=== PATIENT | female | born 2000 | race Caucasian/White ===

== ENCOUNTER 2024-05-16 09:55 | Outpatient (AMB) | payer OTHER, SELFPAY ==
--- NOTE | 2024-05-16 09:57 | A.OFFPC_ITS ---
Vital Signs 05/16/24 10:00 Height 5 ft 6 in Weight 120 lb BMI 19.4 BP 104/70 Blood Pressure Location Rt brachial Position Sitting Pulse 75 Pulse Source Pulse Oximeter Pulse Oximetry (%) 100 Oxygen Delivery Method Room Air Intake Visit Reasons: New Patient/Requesting physical Intake Note: Pt is here today as a New Patient to est care/PE Allergies No Known Allergies Allergy (Verified 05/16/24 10:09) Medication List - Last Reconciled 05/16/24 by Savannah Rogers MD No Known Home Meds Tobacco use date assessed: 05/16/24 Dental Screening Dental Screen Date: 05/16/24 Did you have a dental visit in the last 12 months?: Yes Did you have a dental problem in the last 6 months where you did not have access to dental care?: No Was dental information given to patient?: Patient has dentist HPI New Patient/Requesting physical HPI Details 23-year-old lady new to practice, here t o establish care with a new PCP and for physical exam. She is up-to-date with her cervical cancer screening, last done at [facility] 12/07/2019 with normal findings. She is now currently being seen by Dr. Shania mcfarlane at [facility] and pelvic exam. She is currently feeling well, with no complaints at present time. [facility] Medical History (Updated 05/16/24 @ 10:28 by Savannah Rogers MD) Family history of early CAD No pertinent past medical history Surgical History (Updated 05/16/24 @ 10:17 by Savannah Rogers MD) Hx of wisdom tooth extraction Hx of LASIK Family History (Updated 05/16/24 @ 10:20 by Savannah Rogers MD) Maternal Grandmother Lung cancer Mother Essential hypertension Father Hx of myocardial infarction Maternal Grandfather Alzheimer's dementia, Onset Age: 60 Social History (Updated 05/16/24 @ 10:34 by Savannah Rogers MD) Housing: House Patient Tobacco Use Status: Never used Tobacco e-Cigarette/Vaping Use: Never Used Substance Use Type: Marijuana Advance Directives Date on File: 05/16/24 service: No Current occupational status: employed 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 1. Little interest or pleasure in doing things: not at all 2. Feeling down, depressed, or hopeless: not at all 3. Trouble falling or staying asleep, or sleeping too much: not at all 4. Feeling tired or having little energy: not at all 5. Poor appetite or overeating: not at all 6. Feeling bad about yourself - or that you are a failure or have let yourself or your family down: not at all 7. Trouble concentrating on things, such as reading the newspaper or watching television: not at all 8. Moving or speaking so slowly that other people could have noticed. Or the opposite - being so fidgety or restless that you have been moving around a lot more than usual: not at all 9. Thoughts that you would be better off or of hurting yourself in some way: not at all Total score: 0 Depression Screening Interpretation: Negative Depression Screening Done: Yes 44505 - PHQ-9 Billing: Yes Source: Developed by Drs. Wes Soares, Catherine Pearl, Fernando Stiles and colleagues, with an educational richard from [employer]. Thrive Questionnaire Date Thrive assessed: 05/16/24 I am a: Patient What is your living situation today?: I have a steady place to live Within the past 12 months, did the food you bought not last and you didn't have the money to get more?: Never true Within the past 12 months, did you worry whether your food would run out before you got money to buy more?: Never true Do you have trouble paying for medicines?: No Do you have trouble getting transportation to medical appointments?: No Do you have trouble paying your heating and electricity bill?: No Do you have trouble taking care of your child, family member or friend?: No Do you have trouble with day-to-day activities such as bathing, preparing meals, shopping, managing finances, etc.?: No Are you currently unemployed and looking for a job?: No Are you interested in more education?: No Please select the resources that you would like help with: Housing/Senior Care Currently or been in a relationship where the following occur: No concerns reported THRIVE Score: 0 AUDIT C Alcohol Use Questionnaire (AUDIT-C) 1. How often do you have a drink containing alcohol?: Monthly or less 2. How many drinks containing alcohol do you have on a typical day when you are drinking?: 1 or 2 3. How often do you have six or more drinks on one occasion?: Less than monthly Total Score: 2 OTILIA-7 AMB Questionnaire OTILIA-7 Date OTILIA - 7 assessed: 05/16/24 Feeling nervous, anxious, or on edge: 0 = Not at all Not being able to stop or control worryin = Not at all Worrying too much about different things: 0 = Not at all Being so restless that it is hard to sit still: 0 = Not at all Becoming easily annoyed or irritable: 0 = Not at all Feeling afraid as if something awful might happen: 0 = Not at all Source: Developed by Drs. Wes Soares, Catherine Pearl, Fernando Stiles and colleagues, with an educational richard from [email or web address]. OTILIA-7 Assessment Billing OTILIA-7 Assessment Tool: OTILIA-7 Assessment 24812 Review of Systems Const Denies body aches, Reports difficulty sleeping (Occasional, takes THC gummies), Denies fatigue, Denies fever(s), Denies headache(s) and Denies weakness Eyes Denies change in vision ENT Denies dizziness, Denies headache(s), Denies nasal congestion and Denies nasal discharge Card Denies chest pain, Denies lightheadedness, Denies palpitations and Denies dyspnea Resp Denies chest congestion, Denies cough, Denies dyspnea and Denies wheezing GI Denies abdominal pain, Denies change in bowel habits and Denies heartburn Denies hematuria, Denies urinary frequency, Denies dysuria and Denies urinary urgency Musc Reports no additional complaints Skin/Breast Denies breast pain, Denies breast mass, Denies lesions and Denies rash Neuro Denies dizziness, Denies headache(s) and Denies weakness Psych Reports no additional complaints Endo Denies fatigue, Denies polydipsia, Denies polyuria and Denies palpitations Adan/Lymph Denies easy bruising Aller/Immun Denies seasonal rhinorrhea and Denies wheezing Physical exam (Primary Care) Vital Signs: Last Vital Signs Pulse 75 05/16/24 10:00 BP 104/70 05/16/24 10:00 Pulse Ox 100 05/16/24 10:00 Oxygen Delivery Method Room Air 05/16/24 10:00 BMI result Body Mass Index 19.4 Tobacco/Smoking Status: Tobacco use Status Tobacco use date assessed 05/16/24 05/16/24 10:06 Patient Tobacco Use Status Never used Tobacco 05/16/24 10:06 e-Cigarette/Vaping Use Never Used 05/16/24 10:06 PHQ-9: PHQ-9 Score PHQ-9: Total score 0 05/16/24 10:06 Depression Screening Interpretation: Negative Thrive Assessment: Date of Thrive Assessment Date Thrive assessed 05/16/24 05/16/24 10:06 Currently or been in a relationship where the following occur: No concerns reported Advance Care Planning discussion: Completed/Scanned Date of discussion: 05/16/24 Who was present: Patient Forms completed: Health Care Proxy Time spent: 16-45 minutes Actual minutes spent: 16 Const General: no acute distress and alert Nutritional Appearance: average body habitus Orientation/consciousness: patient oriented x3 HENMT Head: Yes normocephalic and Yes atraumatic Ears: external ears normal, TM's normal bilaterally and EAC's normal General nose exam: Normal external nose present and No nasal discharge present Face and sinus: Yes face symmetric Mouth: Normal oral and palatal mucosa present, lip normal, tongue normal, oropharynx normal and moist mucous membranes Eyes General: appearance normal, both eyes and all related structures Eyelids: Yes eyelids normal Conjunctivae: conjunctivae normal Sclerae: sclerae normal Pupils: Equal, round and reactive pupils present EOM: EOMs intact bilaterally Neck Neck: Yes full ROM, Yes no lymphadenopathy and Yes supple Thyroid: Thyroid normal (Nonpalpable) Chest Chest palpation & inspection: normal inspection of the chest Breast/axilla inspection: normal inspection of the breasts Breast/axilla palpation: normal palpation of the breasts Resp Effort & Inspection: normal respiratory effort and able to speak in complete sentences Auscultation: clear to auscultation bilaterally Cardio Rate: regular rate Rhythm: regular rhythm Heart sounds: S1 normal heart sound present and S2 normal heart sound present GI Palpation (GI): Soft to palpation, nontender, no guarding and no masses Auscultation: normal bowel sounds Other: Deferred, currently sees [facility] Sm[facility] General: Yes no CVA tenderness Back/Spine/Pelvis Back: no CVA tenderness and No back tenderness Skin General skin exam: no rashes or lesions noted Neuro General: patient oriented x3, gait normal, moves all extremities, Normal light touch and pain sensation, no focal motor deficits and CN's II-XI intact bilat erally Cranial nerves: Yes Equal, round and reactive pupils present Cognition (Neuro): normal cognition Gait exam (Neuro): Normal gait present Motor exam (neuro): 5/5 motor strength present throughout Extrem General: Yes normal to inspection, Yes full ROM, Yes no joint enlargement, Yes no pedal edema and Yes normal gait Psych Appearance: grossly normal and well kempt Mental Status: mental status grossly normal Speech and movement: Normal speech and movement present Affect: normal affect Attitude: cooperative Thought process: Normal thought process present Thought content: Normal thought content present Insight: Good insight present (Psych) Judgement: Good judgement present (Psych) Assessment and Plan Assessment & Plan (1) Annual visit for general adult medical examination with abnormal findings: Code(s): Z00.01 - Encounter for general adult medical examination with abnormal findings Plan: Will check appropriate labs. Continue dental visit every 6 months and regular eye exams, currently up-to-date. Recommended to take vitamin-D 3 at least 2000 units daily, and get regular exercise. Instructed to do self-breast exam, and recommended to get yearly mammogram, starting at age 40. Advised to get yearly flu shots, up-to-date with her Tdap. She is currently seeing Dr. Shania mcfarlane at [facility] for her routine Pap and pelvic exam (2) Encounter for screening for diabetes mellitus: Code(s): Z13.1 - Encounter for screening for diabetes mellitus Plan: Fasting blood sugar ordered (3) Encounter for screening for lipid disorder: Code(s): Z13.220 - Encounter for screening for lipoid disorders Plan: Fasting lipid panel ordered (4) Family history of early CAD: Code(s): Z82.49 - Family history of ischemic heart disease and other diseases of the circulatory system Plan: Will check fasting lipids, fasting glucose, reinforced importance of following a healthy diet and getting regular exercise. (5) Encounter for counseling regarding advance directives: Code(s): Z71.89 - Other specified counseling Plan: Initiated the conversation about Advanced Directives. Advanced Directives help patients prepare for current and future decisions about their medical treatment and place of care. Discussed with patient that it is a process where a patients current condition and prognosis are reviewed, their wishes for information regarding their illness are elicited, and likely medical dilemmas are presented and options discussed. Healthcare proxy form completed today, scanned into chart The form can be amended as needed, reviewed yearly and make changes as needed Orders: Orders Hemoglobin and Hematocrit Today Z00.01 - Encounter for general adult medical examination with abnormal findings, Z13.1 - Encounter for screening for diabetes mellitus, Z13.220 - Encounter for screening for lipoid disorders, Z82.49 - Family history of ischemic heart disease and other diseases of the circulatory system Vitamin D 25-OH Total Today Z00.01 - Encounter for general adult medical examination with abnormal findings, Z13.1 - Encounter for screening for diabetes mellitus, Z13.220 - Encounter for screening for lipoid disorders, Z82.49 - Family history of ischemic heart disease and other diseases of the circulatory system Lipid Panel Today Z00.01 - Encounter for general adult medical examination with abnormal findings, Z13.1 - Encounter for screening for diabetes mellitus, Z13.220 - Encounter for screening for lipoid disorders, Z82.49 - Family history of ischemic heart disease and other diseases of the circulatory system Basic Metabolic Panel Fasting Today Z00.01 - Encounter for general adult medical examination with abnormal findings, Z13.1 - Encounter for screening for diabetes mellitus, Z13.220 - Encounter for screening for lipoid disorders, Z82.49 - Family history of ischemic heart disease and other diseases of the circulatory system Coding Level of Care Code New Pt Prev Care 18-39yr([id number] Diagnoses Annual visit for general adult medical examination with abnormal findings Z00.01 Encounter for screening for diabetes mellitus Z13.1 Encounter for screening for lipid disorder Z13.220 Family history of early CAD Z82.49 Encounter for counseling regarding advance directives Z71.89 Additional Codes OTILIA-7 Assessment Billing - OTILIA-7 Assessment Tool: OTILIA-7 Assessment 29413 ([id number]) Vital Signs *Quality* - Advance Care Planning discussion: Completed/Scanned ([id number]) Vital Signs *Quality* - Time spent: 16-45 minutes ([id number])
[2024-05-16 10:00] VITALS: BP 104/70; PULSE 75; O2SAT 100; BMI 19.4
== END 2024-05-16 10:37 | disposition home or self-care (01) ==
PROVIDERS: PCP Internal Medicine; Visit Provider Internal Medicine
DX: Z00.00 Encounter for general adult medical examination without abnormal findings (principal); Z13.1 Encounter for screening for diabetes mellitus; Z13.220 Encounter for screening for lipoid disorders; Z82.49 Family history of ischemic heart disease and other diseases of the circulatory system; Z71.89 Other specified counseling
CPT/HCPCS: 1123F; 99385; 99497

== ENCOUNTER 2025-07-03 10:57 | Outpatient (AMB) | payer OTHER, SELFPAY ==
--- OUTSIDE RECORDS SUMMARY | 2016-05-06 10:15 | XMS_ITS | Continuity of Care Document ---
Author Organization [facility] Address [address] [place] [address] [place] [address] Phone Care Team Providers Care Manager Pulmonary Name Role Phone Melissa Oreilly MD Unavailable Unavailable Allergies, Adverse Reactions, Alerts Substance Reaction Status Criticality No Known Allergies Active No Inform ation Procedures Procedure Date Contact Lens Exam - Spherical Contact - EST Wearer Determination of refractive st 16 Contact Lens Exam - Spherical Contact - EST Wearer Wellness Established Patient Determination of refractive st 13 No Charge/Recheck No Charge/Recheck Wellness Established Patient Advance Directives Directive Yes / No Effective Date File Name No Information Encounters Encounter Description Practice Location Reason(s) For Visit Diagnoses Date Provider Providers Copied on Encounter [facility] [address], [address], [place] tel:[phone] [place] contact lens exam (chief complaint) Myopia, bilateral Denilson Torres. [address] [place] [address], [id number] , [place]. tel:[phone] Referring Provider: Shree Quevedo, [address] [place] [address], [id number] . tel:[phone] [facility] [address], [address], [place] tel:[phone] [place] wellness exam (chief complaint) Myopia Elisa Swann. [address] [place] [address], [id number] , [place]. tel:[phone] Referring Provider: Shree Quevedo, [address] [place] [address], [id number] . tel:[phone] [facility] [address], [address], [place] tel:[phone] [place] Myopia Elisa Swann. [address] [place] [address], [id number] , [place]. tel:[phone] Referring Provider: Shree Quevedo, [address] [place] [address], [id number] . tel:[phone] [facility] [address], [address], [place] tel:[phone] [place] Myopia Elisa Swann. [address] [place] [address], [id number] , [place]. tel:[phone] Referring Provider: Shree Quevedo, [address] [place] [address], [id number] . tel:[phone] [facility] [address], [address], [place] tel:[phone] [place] Myopia Denilson Torres. [address] [place] [address], [id number] , [place]. tel:[phone] Referring Provider: Melissa Oreilly, [address] [place] [address], [id number] . tel:[phone] [facility] [address], [address], [place] tel:[phone] [place] Myopia Elisa Swann. [address] [place] [address], [id number] , [place]. tel:[phone] Referring Provider: Shree Quevedo, [address] [facility], [place], [address] . tel:[phone] Family History Family Member Type Diagnosis Age At Onset No Information Payers Payer name Insurance type Covered democrat ID Authoriza tion(s) No Information Social History Type Description Quantity Date Captured Comments Alcohol Use Details No Caffeine Use Details Unknown Tobacco Use Status No Information Smoking Status Never smoker Sex Female Chief Complaint And Reason For Visit From encounter dated '05/06/2016 14:15'. contact lens exam (chief complaint). Description: The 15 years 9 months old female presents for contact lens exam in the right eye and left eye. Patient says that her vision is doing well. Replaces her contacts every 3 weeks or so. She says that she sometimes wears her glasses too. She sleeps in her contacts occasionally. Reason For Referral Reason For Referral No Information History Of Present Illness Encounter Date Complaint History Of Prese nt Illness contact lens exam The 15 years 9 months old female presents for contact lens exam in the right eye and left eye. Patient says that her vision is doing well. Replaces her contacts every 3 weeks or so. She says that she sometimes wears her glasses too. She sleeps in her contacts occasionally. wellness exam The 14 years 6 m onths old female presents for wellness exam. Denies any vision changes.Wearing Av Oasys 8.8 -4.25/-4.25Replace-2 weeks.Apoorva-equate. Functional Status Date Functional Assessmen t No Information Instructions Date Instruction Additional Infor lata - Contacts, establis hed: The patient should continue contact lens wear. We recommend removing lenses daily for the health of the eyes. We also recommend a pair of glasses as backup. Educational materials provided:CONTACT LENS AVAILABLE FOR ONLINE ORDERING WITH FREE SHIPPING. VISIT OUR WEBSITE AT [email or web address] Related to Myopia, bilateral - Return in 1 year w brandon Oreilly for Comprehensive Visit , Contact Lens Exam Related to Myopia, bilateral - Birdie estabzoltan hed: The patient should continue contact lens wear. We recommend removing lenses daily for the health of the eyes. We also recommend a pair of glasses as backup. Educational materials provided:CONTACT LENS AVAILABLE FOR ONLINE ORDERING WITH FREE SHIPPING. VISIT OUR WEBSITE AT [email or web address] Related to Myopia - Return in 1 [facility] w [facility] Dr. Pérez for Wellness Exam , Contact Check Related to Myopia Myopia , both eyes. - Contacts, established: The patient should continue contact lens wear. We recommend removing lenses daily for the health of the eyes. We also recommend a pair of glasses as backup. Educational materials provided: Contact lens available for online ordering with free shipping. Visit our website at [email or web address]*Contact lens and glasses Rx given. Related to Myopia - Return in 1 year w [facility] Dr. Pérez for Comprehensive Visit and Contact Check. Related to Myopia Myopia Both eyes, Co ndition: established, stable. - Contacts, established: The patient should continue contact lens wear. We recommend removing lenses daily for the health of the eyes. We also recommend a pair of glasses as backup. Educational materials provided: www.[employer] Related to Myopia - Return in 1 year w [facility] Dr. Pérez for C-Comprehensive. Related to Myopia Myopia Both eyes, Co ndition: established, stable. - Contacts, new: The patient should begin contact lenses and use as directed. We recommend removing lenses daily for the health of the eyes and a pair of glasses as backup. Refer to contact lens sheet for additional safety instructions. Educational materials provided: www.[employer] Related to Myopia - Return in 1 year w [facility] Dr. Pérez for C-Comprehensive. Related to Myopia Myopia Both eyes, Co ndition: established, stable. - Glasses: The patient received a prescription for glasses to improve visual functioning. Educational materials provided: Information can be found at [email or web address] Related to Myopia - Return in [address] Pérez for C-Comprehensive. Related to Myopia Assessments Type Assessment Date assessment Myopia, bilateral Patient Care Teams Name Effective Dates (start - stop) Status Members No Information
--- NOTE | 2025-07-03 11:06 | A.OFFPC_ITS ---
Vital Signs 07/03/25 11:09 Height 5 ft 6 in Weight 124 lb BMI 20.0 BP 112/70 Blood Pressure Location Rt brachial Position Sitting Respiration 15 Pulse 69 Pulse Source Pulse Oximeter Temp 98.0 F Temp Source Oral Pulse Oximetry (%) 99 Oxygen Delivery Method Room Air Intake Visit Reasons: Annual PE- see comments Is last menstrual period known: Yes Last menstrual period: 06/24/25 Allergies No Known Allergies Allergy (Verified 07/03/25 11:10) Medication List - Last Reconciled 07/03/25 by Savannah Rogers MD spironolactone 50 mg PO DAILY Tobacco use date assessed: 07/03/25 Dental Screening Dental Screen Date: 07/03/25 Did you have a dental visit in the last 12 months?: Yes Did you have a dental problem in the last 6 months where you did not have access to dental care?: No Was dental information given to patient?: Patient has dentist HPI Annual PE- see comments HPI Details - 24-year-old female presenting for her annual physical exam - Infertility: The patient has a history of infertility, with regular menstrual cycles and normal evaluations for both herself and her partner. - Preventative care: The patient had a n egative Pap smear on February 13, 2025, and is advised to repeat it in three years, currently being seen by Dr. Shania Smiley at [facility] - Immunization status: The patient discu ssed her immunization status, including MMR, Hepatitis B, and Varicella vaccines, noting some discrepancies in her records. - Lightheadedness: The patient experienc es occasional lightheadedness during strenuous exercise, which may be related to low blood sugar levels. 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 Smiley at [facility], negative per patient, repeat in 3 yrs) Questionnaire PHQ-9 Over the last 2 weeks, how often have you been bothered by any of the following problems? 1. Little interest or pleasure in doing things: not at all 2. Feeling down, depressed, or hopeless: not at all 3. Trouble falling or staying asleep, or sleeping too much: not at all 4. Feeling tired or having little energy: not at all 5. Poor appetite or overeating: not at all 6. Feeling bad about yourself - or that you are a failure or have let yourself or your family down: not at all 7. Trouble concentrating on things, such as reading the newspaper or watching television: not at all 8. Moving or speaking so slowly that other people could have noticed. Or the opposite - being so fidgety or restless that you have been moving around a lot more than usual: not at all 9. Thoughts that you would be better off or of hurting yourself in some way: not at all Total score: 0 Depression Screening Interpretation: Negative Depression Screening Done: Yes 63516 - PHQ-9 Billing: Yes Source: Developed by Drs. Wes Soares, Catherine Pearl, Fernando Stiles and colleagues, with an educational richard from [employer]. Thrive Questionnaire Date Thrive assessed: 06/26/25 I am a: Patient What is your living situation today?: I have a steady place to live Within the past 12 months, did the food you bought not last and you didn't have the money to get more?: Never true Within the past 12 months, did you worry whether your food would run out before you got money to buy more?: Never true Do you have trouble paying for medicines?: No Do you have trouble getting transportation to medical appointments?: No Do you have trouble paying your heating and electricity bill?: No Do you have trouble taking care of your child, family member or friend?: No Do you have trouble with day-to-day activities such as bathing, preparing meals, shopping, managing finances, etc.?: No Are you currently unemployed and looking for a job?: No Are you interested in more education?: Yes Please select the resources that you would like help with: None Currently or been in a relationship where the following occur: No concerns reported THRIVE Score: 0 AUDIT C Alcohol Use Questionnaire (AUDIT-C) 1. How often do you have a drink containing alcohol?: Never Total Score: 0 Score Reviewed/Action Taken: Yes OTILIA-7 AMB Questionnaire OTILIA-7 Date OTILIA - 7 assessed: 07/03/25 Feeling nervous, anxious, or on edge: 0 = Not at all Not being able to stop or control worryin = Not at all Worrying too much about different things: 0 = Not at all Trouble relaxin = Not at all Being so restless that it is hard to sit still: 0 = Not at all Becoming easily annoyed or irritable: 0 = Not at all Feeling afraid as if something awful might happen: 0 = Not at all Total OTILIA-7 score (0-4 normal; 5-9 mild; 10-14 moderate; 15-21 severe): 0 Source: Developed by Drs. Wes Soares, Catherine Pearl, Fernando Stiles and colleagues, with an educational richard from [employer]. OTILIA-7 Assessment Billing OTILIA-7 Assessment Tool: OTILIA-7 Assessment 89483 Review of Systems Const Denies body aches, Reports difficulty sleeping (Occasional, takes THC gummies), Denies fatigue, Denies fever(s), Denies headache(s) and Denies weakness Eyes Denies change in vision ENT Denies headache(s), Denies nasal congestion and Denies nasal discharge Card Denies chest pain, Denies lightheadedness, Denies palpitations and Denies dyspnea Resp Denies chest congestion, Denies cough, Denies dyspnea and Denies wheezing GI Denies abdominal pain, Denies change in bowel habits and Denies heartburn Denies hematuria, Denies urinary frequency, Denies dysuria and Denies urinary urgency Musc Reports no additional complaints Skin/Breast Denies breast pain, Denies breast mass, Denies lesions and Denies rash Neuro Reports as per HPI, Denies headache(s) and Denies weakness Psych Reports no additional complaints Endo Denies fatigue, Denies polydipsia, Denies polyuria and Denies palpitations Adan/Lymph Denies easy bruising Aller/Immun Denies seasonal rhinorrhea and Denies wheezing Physical exam (Primary Care) Vital Signs: Last Vital Signs Temp 98.0 F 07/03/25 11:09 Pulse 69 07/03/25 11:09 Resp 15 07/03/25 11:09 BP 112/70 07/03/25 11:09 Pulse Ox 99 07/03/25 11:09 Oxygen Delivery Method Room Air 07/03/25 11:09 BMI result Body Mass Index 20.0 Tobacco/Smoking Status: Tobacco use Status Tobacco use date assessed 07/03/25 07/03/25 11:11 Patient Tobacco Use Status Never used Tobacco 07/03/25 11:11 e-Cigarette/Vaping Use Never Used 07/03/25 11:11 PHQ-9: PHQ-9 Score PHQ-9: Total score 0 07/03/25 11:11 Depression Screening Interpretation: Negative Thrive Assessment: Date of Thrive Assessment Date Thrive assessed 06/26/25 07/03/25 11:11 Currently or been in a relationship where the following occur: No concerns reported Const General: no acute distress and alert Nutritional Appearance: average body habitus Orientation/consciousness: patient oriented x3 HENMT Head: Yes normocephalic Ears: external ears normal, TM's normal bilaterally and EAC's normal General nose exam: Normal external nose present Face and sinus: Yes face symmetric Mouth: Normal oral and palatal mucosa present and moist mucous membranes Eyes General: appearance normal, both eyes and all related structures Conjunctivae: conjunctivae normal Sclerae: sclerae normal Pupils: Equal, round and reactive pupils present EOM: EOMs intact bilaterally Neck Neck: Yes full ROM, Yes no lymphadenopathy and Yes supple Thyroid: Thyroid normal (Nonpalpable) Chest Chest palpation & inspection: normal inspection of the chest Breast/axilla inspection: normal inspection of the breasts Breast/axilla palpation: normal palpation of the breasts Resp Effort & Inspection: normal respiratory effort and able to speak in complete sentences Auscultation: clear to auscultation bilaterally Cardio Rate: regular rate Rhythm: regular rhythm Heart sounds: S1 normal heart sound present and S2 normal heart sound present GI Palpation (GI): Soft to palpation, nontender, no guarding and no masses Auscultation: normal bowel sounds Other: Deferred, currently sees Dr. Shania Smiley at [facility] OBGYN General: Yes no CVA tenderness Back/Spine/Pelvis Back: no CVA tenderness and No back tenderness Skin General skin exam: no rashes or lesions noted Neuro General: patient oriented x3, gait normal, moves all extremities, Normal light touch and pain sensation, no focal motor deficits and CN's II-XI intact bilaterally Cranial nerves: Yes Equal, round and reactive pupils present Cognition (Neuro): normal cognition Gait exam (Neuro): Normal gait present Motor exam (neuro): 5/5 motor strength present throughout Extrem General: Yes normal to inspection, Yes full ROM, Yes no joint enlargement, Yes no pedal edema and Yes normal gait Psych Appearance: grossly normal and well kempt Mental Status: mental status grossly normal Speech and movement: Normal speech and movement present Affect: normal affect Coding Level of Care Code Est Pt Prev Care 18-39y(55056) Diagnoses Annual visit for general adult medical examination with abnormal findings Z00.01 Additional Codes OTILIA-7 Assessment Billing - OTILIA-7 Assessment Tool: OTILIA-7 Assessment 15205 ([id number]) PHQ-9 - 88621 - PHQ-9 Billing: Yes ([id number]) Assessment & Plan Assessment & Plan (1) Annual visit for general adult medical examination with abnormal findings: Code(s): Z00.01 - Encounter for general adult medical examination with abnormal findings Plan: Will check appropriate labs. Continue regular dental visit every 6 months and regular eye exams, at least every 2 years. Take adequate calcium in diet and vitamin-D 3 at 2000 IU per cap once a day, in addition to weight-bearing exercises to help maintain good muscle tone and weight control. Instructed to do self-breast exam, and recommended to get yearly mammogram, starting at age 40. Currently sees OBGYN OBGYN at [facility] for her routine Pap and pelvic exam, which is currently up-to-date . Labs ordered to check for immunity against mumps measles and rubella as well as chickenpox Orders: Orders Hemoglobin and Hematocrit 07/03/25 Z00.01 - Encounter for general adult medical examination with abnormal findings, Z13.1 - Encounter for screening for diabetes mellitus, Z13.220 - Encounter for screening for lipoid disorders MMR IgG Measles Mumps Rubella 07/03/25 Z01.84 - Encounter for antibody response examination Lipid Panel 07/03/25 Z00.01 - Encounter for general adult medical examination with abnormal findings, Z13.1 - Encounter for screening for diabetes mellitus, Z13.220 - Encounter for screening for lipoid disorders Glucose Fasting 07/03/25 Z00.01 - Encounter for general adult medical examination with abnormal findings, Z13.1 - Encounter for screening for diabetes mellitus, Z13.220 - Encounter for screening for lipoid disorders Varicella IgG Antibody 07/03/25 Z01.84 - Encounter for antibody response examination
[2025-07-03 11:09] VITALS: BP 112/70; PULSE 69; RESP 15; TEMP 36.7; O2SAT 99
--- OUTSIDE RECORDS SUMMARY | 2025-07-03 13:09 | XMS_ITS ---
Author Name [facility] Organization Unknown Care Team Organization Name Specialty Phone Email Start Date End Da te [facility] Sully Arreguin Primary Care 03/07/20232023 [facility] Shad Díaz Primary Care 01/05/2023 06/18/2024 [facility] KIM CASTELAN Primary Care 09/07/2022 06/18/2024
--- OUTSIDE RECORDS SUMMARY | 2025-07-03 13:10 | XMS_ITS | Clinical Summary ---
Author Organization [facility] Address [address] [place] [id number] Phone Care Team Providers [employer] Account Executive Name Role Phone Savannah Rogers MD Primary Care Provider Allergies No known active allergies Medications spironolactone (ALDACTONE) 50 MG tablet Take 1 tablet (50 mg total) by mouth daily. 90 tablet 3 06/12/2025 Active Active Problems Problem Noted Date Diagnosed Date Acne 06/12/2025 Overview (06/12/2025): Cyclic/hormonal Assessment & Plan (06/12/2025 2:41 PM EDT): Rx options include drosp OCP either combined or without EE (R&B of these dsicussed) or spironolactone, prefers the last one Start medium dose 50 mg daily (can try cyclically, though I have no info one effectiveness of that), can increase to 100 mg prn K impact also dicsused Facials are also effective Not immune to rubella 03/28/2024 Overview (03/28/2024): Advised to have vaccination now to reduce the risk of intrapartum acquisition of rubella, explaining that this is devastating neurologically to in utero embryo or fetus with potential for very severe damage Vaccination declined at this time Maternal varicella, non-immune 03/28/2024 Overview (03/28/2024): Advised to have vaccination now to reduce the risk of intrapartum acquisition of varicella, explaining that this is devastating neurologically to in utero embryo or fetus with potential for very severe damage Vaccination declined at this time Female infertility 10/19/2023 Overview (03/28/2024): Trying to conceive x 2 years Good health, overall normal monthly menstrual cycles Partner healthy 27-year-old, neither with any previous conceptions NOrmal HSG ( left tube for sure, right most likely patent) FSH 6.5, normal PRL and TSH SA- 53.6 million, normal morph and motility Assessment & Plan (02/13/2025 10:31 AM EDT): 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 Discussed treatment with oral medication to stimulate ovulation, with time to ensure inseminations. Discussed the side effects of Clomid as well as the increased risk of multiple gestation. Discussed logistics of the IUI including that we do these over the weekends, use of the ovulation predictor test, to call us the day turns positive for insemination the next day. All questions were answered, specimen cups were given for her partner to use Assessment & Plan (10/19/2023 12:29 PM EST): Step 7 evaluation were reviewed and discussed in detail, I ordered the day 3 labs today. Her partner needs to either register with [facility] or to have his doctor order the semen analysis. After all the steps are done, we need an office visit to go over the results determine if any specific cause was found, or proceed with treatment for unexplained infertility. Information placed in the after visit summary, she met with our fertility nurse to help coordinate the care. Today is around day 9 of her cycle, uncertain if we get the SHG this week Encounter for preconception consultation 023 Assessment & Plan (10/19/2023 12:30 PM EST): reCommend daily folic acid to reduce risk of neural tube defect. Prepregnancy routine type labs were discussed and ordered. She can also opt to have screening for the carrier status for certain genetic disorders, advised her there is some very small panels and very large comprehensive ones. She can talk to her partner about this check with her insurance and see if she would like to pursue any such screening prior to conception Encounters Date Type Department Care Team Description 06/12/2025 2:10 PM EDT Office Visit [facility] [address] [place] [address] Shania Smiley MD Acne, unspecified acne type (Primary Dx) from Last 3 Months Immunizations Immunization Administration Dates Next Due MMR 03/30/2024 Social History Tobacco Use Types Packs/Day Years Used Date Smoking Tobacco: Never Smokeless Tobacco: Never Tobacco Cessation:Counseling Given: Not Answered Alcohol Use Standard Drinks/Week Comments Yes 0 (1 standard drink = 0.6 oz pure alcohol) rarely, a glass of wine in a sitting Education Answer Date Recorded Are you interested in more education? Not on chris e 10/12/2023 Are you concerned about learning? Not on file 10/12/2023 No 10/12/2023 No 10/12/2023 Digital Access Answer Date Recorded No 10/12/2023 No 10/12/2023 Reliable internet access at home? Not on file 10/12/2023 Device with a working camera? Not on file Comments No Sex and Gender Information Value Date Recorded Sex Assigned at Not on file Legal Sex Female 9:51 AM EST Gender Identity Not on file Sexual Orientation Not on file Last Filed Vital Signs Vital Sign Reading Time Taken Comments Blood Pressure 98/68 06/12/2025 2:17 PM EDT Pulse - - Temperature - - Respiratory Rate - - Oxygen Saturation - - Inhaled Oxygen Concentration - - Weight 56.7 kg (125 lb) 06/12/2025 2:17 PM EDT Height 167.6 cm (5' 6 ) 02/13/2025 9:35 AM EDT Body Mass Index 20.18 02/13/2025 9:35 AM EDT Plan of Treatment Health Maintenance Due Date Last Done Comments POTASSIUM LEVEL 1998 DEPRESSION SCREENING 2010 HPV VACCINES (1 - 3-dose series) 2013 INFLUENZA VACCINE (#1) 2025 COVID-19 VACCINE (2023-2 5 season) 2025 PAP SMEAR 02/14/2028 02/13/2025 Adult Td,Tdap Booster 12/07/2034 12/07/2024 HEPATITIS C SCREENING Completed 02/01/2024 HIV ONE-TIME SCREENING (18-6 5 YEARS) Completed 02/01/2024 SMOKING STATUS SCREENING (On ce After 26 Yrs) Completed 02/13/2025 HEPATITIS A VACCINES Aged Out No long er eligible based on patient's age to complete this topic HIB VACCINES Aged Out No longer eligi ble based on patient's age to complete this topic MENINGOCOCCAL VACCINES (ACWY) Aged Out No longer eligible based on patient's age to complete this topic MENINGOCOCCAL VACCINES (B) Aged Out N o longer eligible based on patient's age to complete this topic PNEUMOCOCCAL VACCINES (0-49 years) Aged Out No longer eligible based on patient's age to complete this topic Medical Devices Not on file Procedures Procedure Name Priority Date/Time Associated Diagnosis Comments PAP TEST Routine 02/13/2025 12:00 AM EDT HEPATITIS C ANTIBODY, QUALITATIVE Routine 02/01/2024 12:02 PM EDT Need for hepatitis C screening test from Last 3 Months or Most Recently Relevant to Health Maintenance Results * Pap Test (02/13/2025 12:00 AM EDT) 02/13/2025 02/14/2025 9:2 0 AM EDT Narrative SEE NARRATIVE - 02/19/2025 1:34 PM EDT [address] [address] Manager Image: Luis Angel Sosa MD 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 PAP SMEAR (THIN PREP) CE: SPECIMEN ADEQUACY: Satisfactory for evaluation; transformation zone present. INTERPRETATION: NEGATIVE FOR INTRAEPITHELIAL LESION OR MALIGNANCY. This specimen was analyzed by the automated ThinPrep Imaging System ([employer] and the selected barrett were reviewed by a senior staff specialized employment. Electronically Signed Out By: GUILLERMO Moya(ASCP) The Pap test is a screening test primarily for squamous cancers and precursors and has associated false-negative and false-positive results. New technologies such as liquid-based preparations may decrease but will not eliminate all false-negative results. Regular sampling and follow-up of unexplained clinical signs and symptoms are recommended to minimize false negative results. CLINICAL HISTORY Date of Last Menstrual Period: 02-13-2025 Other Clinical Conditions: Screening Pap SPECIMEN SOURCE A: PAP SMEAR (THIN PREP) CE Patient Name: SYLVIE SETH : 2000 (Age: 24) Sex: F Institution: [facility] Location: [facility] Date of Collection: 02/13/2025 Date of Reported: 02/19/2025 13:34 Results to: Shania Smiley MD us Shania Smiley MD CYTOLOGY ORDERABLES Final Result Performing Organization Address City/[facility] Co de Phone Number SEE NARRATIVE * Hepatitis C antibody, qualitative (02/01/2024 12:02 PM EDT) HCV NON-REACTIV E NON-REACTI VE [facility] Blood 02/01/2024 12:0 2 PM EDT 02/01/2024 12:07 PM EDT us Shania Smiley MD LAB BLOOD ORDERABLES Final Resul t Performing Organization Address [facility] Co de Phone Number [facility] [address] [place] [address] from Last 3 Months or Most Recently Relevant to Health Maintenance Insurance [facility] Care [employer] International Account Executive Relationship Specialty Start Date End Date Savannah Rogers MD [address] [place] [address] PCP - General Internal Medicine 10/12/23 Additional Source Comments The information contained in this document represents components of the legal health record. It is not the complete legal health record.[facility]
== END 2025-07-03 11:35 | disposition home or self-care (01) ==
LOC: HO.HMCC 10:58
PROVIDERS: PCP Internal Medicine; Visit Provider Internal Medicine
DX: Z00.01 Encounter for general adult medical examination with abnormal findings (principal)

== ENCOUNTER → 2025-07-03 10:57 | Outpatient (BNVA) | payer OTHER, SELFPAY | PROVIDERS: PCP Internal Medicine; Visit Provider Internal Medicine | DX: Z00.01 Encounter for general adult medical examination with abnormal findings (principal) | CPT/HCPCS: 96127 ==